=== PATIENT | male | born 1960 | race Caucasian/White ===

== ENCOUNTER 2016-07-05 14:34 | Observation (INO) | payer OTHER ==
--- NOTE | ~2016-07-05 | OP ---
Record Of Operation [facility] [address] [place]. [address] NAME: MARCK CRUZ : 64 STATUS : DIS Tess PAT#: [id number] AGE: 55 ADM/REG DATE : 07/06/16 MR#: [id number] REPORT SERV DATE: 07/08/16 DICTATED BY: ELVIN OROPEZA DATE: 07/08/16 REPORT STATUS : Draft TRANSCRIBED BY: MODL DATE: 07/08/16 DATE OF PROCEDURE: 07/05/2016 PREOPERATIVE DIAGNOSIS: Acute appendicitis. POSTOPERATIVE DIAGNOSIS: Acute appendicitis. PROCEDURE PERFORMED: Laparoscopic appendectomy. SURGEON: Elvin Oropeza M.D. CIVIL CAD TECH: Nino Farooq MD ESTIMATED BLOOD LOSS: 50 mL. SPECIMENS REMOVED: One appendix. DRAINS: One 19-Persian CHRISTA drain. BRIEF HISTORY: Mr. Cruz is a 55-year-old gentleman, who presented with acute onset abdominal pain localized in the right lower quadrant. Workup in the emergency room revealed a leukocytosis and a CT scan suggestive of acute appendicitis. He presents today for appendectomy. FINDINGS AT THE TIME OF PROCEDURE: Mr. Cruz' appendix was severely inflamed and very friable. He had some adhesions of his cecum to the anterior abdominal wall possibly from his previous history of diverticulitis. There was a lot of inflammation separation. We opted to place a CHRISTA drain in his pelvis. Limited examination remainder of his small and large bowel revealed no obvious abnormalities. DETAILS: Following informed consent, the patient was taken to the operative suite and after successful induction of general endotracheal anesthesia, his abdomen was prepped and draped in usual sterile fashion. An umbilical skin incision was made and skin hooks were used to elevate the skin edges and anterior rectus fascia. There was a small umbilical hernia defect. We were able to use this as a portal of entry. A non-bladed 10/12 trocar was inserted through this orifice, connected to insufflation tubing, peritoneal cavity was insufflated with carbon oxide to a resting pressure of 15 mmHg. A 5 mm laparoscope was then introduced. The underlying bowel and vascular structures were carefully inspected and noted to be free from injury from initial trocar insertion. Two additional 5 mm trocars were placed in the lower midline under direct visualization without incident. A 5 mm laparoscope was positioned through the lower trocar. The cecum was actually densely adhered to the right abdominal wall, but the base of the appendix was clearly defined and the tip seem to migrate deep into the pelvis. There was a large amount of inflammation and separation with a fiber purulent exudate all over the surface of the appendix and actually some murky periappendiceal fluid. This was not feces, and there was no destiny perforation, just extensive inflammation. A window was created at the base of the appendix and a blue load Record Of Operation [address] [place]. [address] NAME: MARCK CRUZ : 64 STATUS : DIS Tess PAT#: [id number] AGE: 55 ADM/REG DATE : 07/06/16 MR#: [id number] REPORT SERV DATE: 07/08/16 DICTATED BY: ELVIN OROPEZA DATE: 07/08/16 REPORT STATUS : Draft TRANSCRIBED BY: CHARLES DATE: 07/08/16 Endo SULAIMAN stapler was fired across the appendiceal base. Using several vascular loads, we were able to fire across the thickened mesoappendix in a stepwise fashion and removed the appendix from all of its attachments. Additional hemoclips had to be placed on the mesoappendix staple line, and there was a lot of friability and oozing that was controlled with hemoclips. The appendix was placed in the assigned endoscopic retrieval pouch and removed through the 12 mm trocar site. Right lower quadrant was copiously irrigated. Staple lines were carefully inspected. Hemostasis was found to be secured. As an added precaution, we inserted Surgiflo. A 19-Persian CHRISTA drain was then inserted and removed through the lower 5 mm trocar site. The drain was secured to the skin with Prolene. Remaining trocars were removed. Sites were observed. Hemostasis was found to be secured. Laparoscope removed followed by the umbilical trocar. The umbilical fascia was approximated using 0 Vicryl suture. Skin edges approximated using 4-0 Monocryl subcuticular suture and Dermabond. At the completion of case, all sponge and needle counts were correct. The patient was extubated and transferred to recovery room in satisfactory condition. GAB/CHARLES Elvin Oropeza M.D. / [id number] CC: Dafne Pat M.D.
--- NOTE | ~2016-07-05 | HP ---
History And Physical [place] [id number] [facility] [place]. [address] NAME: MARCK CRUZ : 64 STATUS : DIS Tess PAT#: [id number] AGE: 55 ADM/REG DATE : 07/06/16 MR#: [id number] REPORT SERV DATE: 07/08/16 DICTATED BY: ELVIN OROPEZA DATE: 07/08/16 REPORT STATUS : Draft TRANSCRIBED BY: MODTrue DATE: 07/08/16 DATE OF ADMISSION: 07/06/2016 CHIEF COMPLAINT: Abdominal pain. HISTORY OF PRESENT ILLNESS: Mr. Cruz is a 55-year-old gentleman, who was in his usual state of health when he started developing abdominal pain that started early yesterday and progressively worsened. He tried to tough it out to go to work, but it progressively worsened. The pain became more localized to his right lower quadrant. He has had a bout of diverticulitis in the past that required surgery, but this feels distinctly different than diverticulitis. He denies any fever or chills, does report some anorexia and pain is worse with movement. He has no other precipitating or alleviating factors, and he states the pain is not relieved. Workup in the emergency room revealed a leukocytosis and a CT scan suggestive for acute appendicitis. PAST MEDICAL HISTORY: Significant for lupus and diverticulitis. PREVIOUS SURGERIES: Include tonsillectomy, left total knee, left spinal fusion, diagnostic laparoscopy and washout for diverticulitis, and cervical neck fusion. MEDICATIONS: Medications taken at home include Xanax, Lortab 10, Plaquenil, Phenergan, and Tylenol. ALLERGIES: INCLUDE MORPHINE WHICH CAUSES ITCHING. SOCIAL HISTORY: He denies tobacco or alcohol use. He works for [employer] (formerly [employer] FAMILY HISTORY: Noncontributory. REVIEW OF SYSTEMS: A comprehensive 12-point review of systems obtained and completely negative other than what is mentioned in the history of present illness. PHYSICAL EXAMINATION: VITAL SIGNS: Temperature is 100.2, blood pressure 124/78, pulse 110, respirations 16, oxygen saturation 95. GENERAL: He is a well-developed gentleman in no acute cardiopulmonary distress. HEENT: Pupils are equal, round, and reactive to light. Extraocular movements are intact. Conjunctivae nonicteric. NECK: Supple. He has no jugular venous distention. No carotid bruits. No cervical lymphadenopathy. PULMONARY: Normal respiratory effort. Breath sounds are clear. CARDIOVASCULAR: Regular rate and rhythm. ABDOMEN: Soft. He is tender in the right lower quadrant. EXTREMITIES: No clubbing, cyanosis, or edema. History And Physical [address] [address] NAME: MARCK CRUZ : 64 STATUS : DIS Tess PAT#: [id number] AGE: 55 ADM/REG DATE : 07/06/16 MR#: [id number] REPORT SERV DATE: 07/08/16 DICTATED BY: ELVIN OROPEZA DATE: 07/08/16 REPORT STATUS : Draft TRANSCRIBED BY: MODL DATE: 07/08/16 LABORATORY DATA: White blood cell count 15.5, hematocrit 42, platelet count 211. Sodium 140, potassium 3.8, chloride 105, CO2 of 25, BUN 12, creatinine 1.12, glucose 112. CT scan of the abdomen and pelvis demonstrated dilated appendix with periappendiceal stranding. ASSESSMENT: Right upper quadrant abdominal pain, probable acute appendicitis. PLAN: Laparoscopic appendectomy. The risks, benefits, and alternatives to surgery were explained to Mr. Cruz in detail. He wished to proceed with surgery. GAB/CHARLES Elvin Oropeza M.D. / [id number] CC: Dafne Pat M.D.
[~2016-07-05 14:34] MED LIST: ADVIL PO; ATIVAN PO; LORT7 PO; XANAX1 MG PO
[2016-07-05 15:00] LABS: BASOPHILS 0.1 %; BASOPHILS ABSOLUTE 0.01 10/3/uL (0.0-0.16); EOSINOPHILS 0.1 %; EOSINOPHILS ABSOLUTE 0.01 10/3/uL (0.0-0.53); ER CBC TAT 0 Hrs 11 Mins; HEMATOCRIT 42.7 % (40.0-51.0); HEMOGLOBIN 14.9 g/dL (13.6-17.8); IMMATURE GRANULOCYTES 0.3 %; IMMATURE GRANULOCYTES ABSOLUTE 0.05 10/3/uL (0.0-0.11); LYMPHOCYTES 8.7 %; LYMPHOCYTES ABSOLUTE 1.35 10/3/uL (0.67-4.30); MEAN CORPUS HGB CONC 34.9 g/dL (32.0-36.0); MEAN CORPUSCULAR HEMOGLOB 31.2 pg (26.0-34.0); MEAN CORPUSCULAR VOLUME 89.3 fL (80-100); MEAN PLATELET VOLUME 10.5 fL (9.2-13.0); MONOCYTES 3.6 %; MONOCYTES ABSOLUTE 0.55 10/3/uL (0.21-1.20); NEUTROPHILS 87.2 %; NEUTROPHILS ABSOLUTE 13.49 10/3/uL (2.02-8.40); PLATELET COUNT 211 10/3/uL (150-400); RBC DISTRIBUTION WIDTH 12.9 % (12.0-16.0); RED CELL COUNT 4.78 10/6/uL (4.7-6.1); WHITE BLOOD CELLS 15.5 10/3/uL (4.5-10.5)
[2016-07-05 15:02] LABS: WBC (NOT ORDERED) (RFLEX) 0 (0-5)
[2016-07-05 15:03] LABS: MANUAL DIFF NO %
[2016-07-05 15:12] LABS: ASCORBIC ACID (UR NOT ORDER) NEG (NEG); BILIRUBIN, URINE NEGATIVE (NEG); ER URINALYSIS TAT 0 Hrs 16 Mins; KETONE, URINE NEGATIVE (NEG); LEUKOCYTE ESTERASE(NOT OR NEG (NEG); NITRITE (URINE) NEG (NEG)
[2016-07-05 15:16] LABS: ALBUMIN 3.7 G/DL (3.5-5.0); ALKALINE PHOSPHATASE 73 U/L (45-117); BUN (BLOOD UREA NITROGEN) 12 MG/DL (6-23); CALCIUM, SERUM 8.5 MG/DL (8.5-10.4); CHLORIDE, SERUM 105 MMOL/L (96-112); CO2 (CARBON DIOXIDE) 25 MMOL/L (24-34); CREATININE 1.12 MG/DL (0.70-1.30); GFR AFRICAN AMERICAN 86 ML/MIN (>=60); GFR NON AFRICAN AMERICAN 75 ML/MIN (>=60); GLOBULIN 3.8 G/DL (2.5-4.1); GLUCOSE, SERUM 112 MG/DL (60-99); POTASSIUM, SERUM 3.8 MMOL/L (3.5-5.3); SGOT(AST) 13 U/L (5-40); SGPT(ALT) 27 U/L (5-65); SODIUM, SERUM 140 MMOL/L (135-148); TOTAL BILIRUBIN 0.8 MG/DL (0-1.2); TOTAL PROTEIN 7.5 G/DL (6.0-8.5)
[2016-07-05] MEDS ORDERED: X5 PO (19:30)
[2016-07-05] MEDS ORDERED: NORCO1 TAB PO (19:30)
[2016-07-05] MEDS ORDERED: PLAQ200B PO (19:30)
[2016-07-05] MEDS ORDERED: PR25 PO (19:31)
[2016-07-05] MEDS ORDERED: ACET500CAP PO (19:31)
[2016-07-06 05:41] LABS: BASOPHILS 0.1 %; BASOPHILS ABSOLUTE 0.01 10/3/uL (0.0-0.16); EOSINOPHILS 0 %; HEMATOCRIT 39.7 % (40.0-51.0); HEMOGLOBIN 13.2 g/dL (13.6-17.8); IMMATURE GRANULOCYTES 0.3 %; IMMATURE GRANULOCYTES ABSOLUTE 0.05 10/3/uL (0.0-0.11); LYMPHOCYTES 5.3 %; MEAN CORPUS HGB CONC 33.2 g/dL (32.0-36.0); MEAN CORPUSCULAR HEMOGLOB 30.6 pg (26.0-34.0); MONOCYTES 4.2 %; MONOCYTES ABSOLUTE 0.64 10/3/uL (0.21-1.20); NEUTROPHILS 90.1 %; NEUTROPHILS ABSOLUTE 13.71 10/3/uL (2.02-8.40); PLATELET COUNT 185 10/3/uL (150-400); RBC DISTRIBUTION WIDTH 13.3 % (12.0-16.0); RED CELL COUNT 4.31 10/6/uL (4.7-6.1); WHITE BLOOD CELLS 15.2 10/3/uL (4.5-10.5)
[2016-07-06 05:42] LABS: MEAN CORPUSCULAR VOLUME 92.1 fL (80-100)
[2016-07-06 05:43] LABS: MANUAL DIFF NO %
[2016-07-06] MEDS ORDERED: ZOFRAN4 PO (08:36)
[2016-07-06] MEDS ORDERED: PERCOCET 10/3251 TAB PO (08:37)
[2016-07-06] MEDS ORDERED: AUG875 PO (08:37)
== END 2016-07-06 10:45 | disposition home or self-care (01) ==
LOC: ER 14:34 → SDC 20:09 → 5SO 07-06 00:06
PROVIDERS: Emergency Medicine; Surgery
PROC: 0DTJ4ZZ Resection of Appendix, Percutaneous Endoscopic Approach (ICD-10-PCS; principal; 2016-07-05 22:00)
DX: K35.80 Unspecified acute appendicitis (principal); M32.9 Systemic lupus erythematosus, unspecified; Z98.890 Other specified postprocedural states; Z79.01 Long term (current) use of anticoagulants; Z79.899 Other long term (current) drug therapy; Z88.5 Allergy status to narcotic agent
CPT/HCPCS: 74176; 80053; 81001; 83605; 83690; 85025; 87040; 88304; 93005; 96374; 96376; 99285; A9270-GY; G0378; J0330; J1170; J2250; J2370; J2405; J2543; J2550; J2710; J3010